=== PATIENT | male | born 1990 | race Caucasian/White ===

== ENCOUNTER → 2016-10-13 | Outpatient (CLI) | payer BC ==
[~2016-10-13] MED LIST: ASPIR 8181 MG PO; AUGMENTIN 875-1 EACH PO; LEVOTHYROXINE150 MCG PO; PERCOCET 5-3251 EACH PO; SINGULAIR10 MG PO; STOOL SOFTENER250 MG PO; ZOFRAN4 MG PO
== END ==
LOC: RAD 09:00
DX: M66.812 Spontaneous rupture of other tendons, left shoulder (principal); S43.402A Unspecified sprain of left shoulder joint, initial encounter
CPT/HCPCS: 73040; 73222; A9577; Q9962

== ENCOUNTER → 2016-12-12 | Outpatient (CLI) | payer BC ==
[2016-12-12 12:12] LABS: BUN/CREATININE RATIO 18 (0-10)
== END ==
LOC: OPSV2 11:00
PROVIDERS: Orthopaedic Surgery
DX: Z01.812 Encounter for preprocedural laboratory examination (principal); S43.492A Other sprain of left shoulder joint, initial encounter
CPT/HCPCS: 36415; 80048

== ENCOUNTER → 2016-12-13 | Day surgery (SDC) | payer BC, OTHER ==
[~2016-12-13] VITALS: Ht 162.6 cm; Wt 87.5 kg
== END | disposition home or self-care (01) ==
LOC: OR 09:04
PROVIDERS: Orthopaedic Surgery
PROC: 0MM24ZZ Reattachment of Left Shoulder Bursa and Ligament, Percutaneous Endoscopic Approach (ICD-10-PCS; principal; 2016-12-13 11:00)
DX: S43.402A Unspecified sprain of left shoulder joint, initial encounter (principal); M25.312 Other instability, left shoulder; E07.9 Disorder of thyroid, unspecified; Z79.82 Long term (current) use of aspirin; Z79.899 Other long term (current) drug therapy; V49.9XXA Car occupant (driver) (passenger) injured in unspecified traffic accident, initial encounter
CPT/HCPCS: 73030; C1713; J0171; J0690; J2250; J2795; J3010; J7120